=== PATIENT | female | born 1935 | race Caucasian/White ===

== ENCOUNTER 2021-05-21 03:07 | Observation (INO) | payer MEDICARE ==
[2021-05-21] MEDS ORDERED: predniSONE 20 MG TAB ONE ×2 (03:57→12:26)
[2021-05-21] MEDS ORDERED: Ventolin HFA Inhaler 60 PUFF INHALER ONE (03:58)
[2021-05-21 04:11] LABS: #Eosinphils 0.1 10x3/uL (0.0-0.5); #Monocytes 0.7 10x3/uL (0.0-1.1); %Basophils 0.4 % (0.0-2.0); %Eosinophils 2.5 % (0.0-6.0); %Lymphocytes 21.3 % (18.0-47.0); %Monocytes 13.5 % (0.0-10.0); %Neutrophils 61.9 % (40.0-75.0); Hemoglobin 13.1 g/dL (12.0-15.5); Mean Corpuscular Volume 96.9 fl (81.6-98.3); Mean Platelet Volume 10.9 fl (7.4-10.4); Platelet Count 96 10x3/uL (150-450); RBC Distribution Width 13.7 % (11.5-14.5); Red Blood Cell (RBC) Count 4.23 10x6/uL (3.90-5.03); White Blood Cell (WBC) Count 4.9 10x3/uL (3.5-10.5)
[2021-05-21 04:17] LABS: ALT (SGPT) 23 U/L (8-55); AST (SGOT) 33 U/L (5-34); Albumin 4.2 g/dL (3.4-4.8); Alkaline Phosphatase 103 U/L (40-110); Anion Gap 16 mmol/L (10-20); BUN (Urea Nitrogen) 16 mg/dL (9.8-20.1); Bilirubin, Total 2.2 mg/dL (0.2-1.2); Calc. Creatinine Clearance 0 mL/min (70-130); Calcium 8.7 mg/dL (7.8-10.44); Carbon Dioxide 24 mmol/L (23-31); Chloride 106 mmol/L (98-107); Glucose 94 mg/dL (83-110); Potassium 3.7 mmol/L (3.5-5.1); Protein, Total 7.2 g/dL (5.8-8.1); Sodium 142 mmol/L (136-145)
[2021-05-21] MEDS ORDERED: Furosemide 40 MG/4 ML VIAL ONE (05:31)
[2021-05-21] MEDS ORDERED: Azithromycin 500 MG in Sodium Chloride 0.9% 250 ML 250 ML IVPB SCH (06:30)
[2021-05-21 07:36] LABS: Magnesium 1.8 mg/dL (1.6-2.6)
[2021-05-21 07:40] LABS: Troponin I Less than 0.010 ng/mL (< 0.028)
[2021-05-21] MEDS ORDERED: Apixaban 5 MG TAB PO SCH (09:00)
[2021-05-21] MEDS ORDERED: Apixaban 5 MG TAB ONE (12:26)
[2021-05-21] MEDS ORDERED: Potassium Chloride 20 MEQ TAB ONE (12:27)
[2021-05-21] MEDS ORDERED: Metoprolol Tartrate 50 MG TAB ONE (12:27)
[2021-05-21] MEDS ORDERED: Diltiazem 125 MG/25 ML ONE (12:28)
[2021-05-21] MEDS ORDERED: Budesonide 0.5 MG/2 ML NEB ONE (12:32)
[2021-05-21] MEDS: Budesonide 0.5 MG/2 ML NEB NEB SCH ×2 (12:36→20:00)
[2021-05-21] MEDS: Arformoterol 15 MCG/2 ML NEB NEB SCH ×2 (12:39→20:00)
[2021-05-21] MEDS: predniSONE 20 MG TAB PO SCH (12:39)
[2021-05-21] MEDS ORDERED: Losartan 25 MG TAB ONE (12:47)
[2021-05-21] MEDS: guaiFENesin ER 600 MG TAB PO SCH ×2 (12:58→21:42)
[2021-05-21] MEDS: Losartan 25 MG TAB PO SCH (12:58)
[2021-05-21] MEDS ORDERED: Furosemide 40 MG/4 ML VIAL SLOW IVP SCH (14:00)
[2021-05-21] MEDS ORDERED: Digoxin 0.5 MG/2 ML AMP SLOW IVP SCH (15:00)
[2021-05-21 16:39] VITALS: BMI 35.7
[2021-05-21] MEDS ORDERED: cefTRIAXone\\ROCEPHIN 1 GM in Sodium Chloride 0.9% 100 ML IVPB SCH ×2 (18:00→21:00)
[2021-05-21 19:08] LABS: Bilirubin Neg (Negative); Blood, Urine Negative (Negative); Clarity Clear (Clear); Glucose, Urine (Dipstick) 50 mg/dL (Negative); Ketone, Urine Negative (Negative); Leukocyte 25 (Negative); Nitrite Negative (Negative); Protein, Urine (Dipstick) Negative (Neg-Trace); Urobilinogen Normal mg/dL (Less than 2)
[2021-05-21 19:17] LABS: Urine Culture Reflex No No
[2021-05-21 19:28] LABS: Bacteria/HPF Rare-Few HPF (None Seen); RBC/HPF 0-3 HPF (0-3); Squamous Epithelial None Seen HPF (0-3); WBC/HPF 0-3 HPF (0-3)
[2021-05-21] MEDS: diphenhydrAMINE 50 MG/ML VIAL IVP SCH (20:44)
[2021-05-21] MEDS ORDERED: Aztreonam 1 GM in Sodium Chloride 0.9% 100 ML IVPB SCH (21:00)
[2021-05-21] MEDS ORDERED: Dextrose 50% Abboject 50 ML SYRINGE SLOW IVP PRN (21:10)
[2021-05-21] MEDS ORDERED: Dextrose 5% in Water 1,000 ML IV PRN (21:10)
[2021-05-21] MEDS ORDERED: HumaLOG 300 UNITS/3 ML VIAL SC PRN (21:10)
[2021-05-21] MEDS: Benzonatate 100 MG CAP PO SCH (21:42)
[2021-05-21] MEDS: Apixaban 5 MG TAB PO SCH (21:42)
[2021-05-21 21:44] LABS: Legionella Urinary Ag Negative (Negative); Strep pneumo Urine Ag NEGATIVE (NEGATIVE)
[2021-05-21] MEDS ORDERED: GUAIFENESIN SF SOLN 200 MG/10 ML UDCUP PO PRN (22:51)
[2021-05-22 05:46] LABS: Anion Gap 13 mmol/L (10-20); BUN (Urea Nitrogen) 20 mg/dL (9.8-20.1); Calc. Creatinine Clearance 71 mL/min (70-130); Calcium 8.3 mg/dL (7.8-10.44); Carbon Dioxide 26 mmol/L (23-31); Chloride 106 mmol/L (98-107); Glucose 176 mg/dL (83-110); Potassium 3.7 mmol/L (3.5-5.1); Sodium 141 mmol/L (136-145)
[2021-05-22] MEDS ORDERED: Levothyroxine Sodium 100 MCG TAB PO SCH (06:00)
[2021-05-22] MEDS ORDERED: Levothyroxine Sodium 75 MCG TAB PO SCH (06:00)
[2021-05-22] MEDS ORDERED: Furosemide 40 MG/4 ML VIAL SLOW IVP SCH (06:00)
[2021-05-22 06:02] LABS: #Monocytes 0.5 10x3/uL (0.0-1.1); #Neutrophils 5.4 10x3/uL (1.5-8.4); %Lymphocytes 10.7 % (18.0-47.0); %Monocytes 7.8 % (0.0-10.0); %Neutrophils 81.2 % (40.0-75.0); Mean Corpuscular HGB CONC 33.4 g/dL (32.0-36.0); Mean Corpuscular Hemoglobin 31.7 pg (27.0-33.0); Mean Corpuscular Volume 94.7 fl (81.6-98.3); Mean Platelet Volume 11.8 fl (7.4-10.4); Platelet Count 99 10x3/uL (150-450); RBC Distribution Width 13.6 % (11.5-14.5); Red Blood Cell (RBC) Count 3.79 10x6/uL (3.90-5.03); White Blood Cell (WBC) Count 6.7 10x3/uL (3.5-10.5)
[2021-05-22] MEDS: Levothyroxine Sodium 75 MCG TAB PO SCH (06:06)
[2021-05-22] MEDS: Levothyroxine Sodium 100 MCG TAB PO SCH (06:06)
[2021-05-22] MEDS: Arformoterol 15 MCG/2 ML NEB NEB SCH ×2 (06:55→20:05)
[2021-05-22] MEDS: Budesonide 0.5 MG/2 ML NEB NEB SCH ×2 (06:57→20:15)
[2021-05-22] MEDS ORDERED: Digoxin 0.5 MG/2 ML AMP SLOW IVP SCH ×2 (08:30→10:30)
[2021-05-22] MEDS ORDERED: Guaifenesin DM 100-10/5 ML UDCUP PO PRN (08:33)
[2021-05-22] MEDS ORDERED: Digoxin 0.5 MG/2 ML AMP ONE (08:51)
[2021-05-22] MEDS: guaiFENesin ER 600 MG TAB PO SCH ×2 (08:54→21:10)
[2021-05-22] MEDS: Losartan 25 MG TAB PO SCH (08:54)
[2021-05-22] MEDS: predniSONE 20 MG TAB PO SCH (08:54)
[2021-05-22] MEDS: Apixaban 5 MG TAB PO SCH ×2 (08:55→21:10)
[2021-05-22] MEDS: Benzonatate 100 MG CAP PO SCH ×3 (08:56→21:09)
[2021-05-22] MEDS ORDERED: Potassium Bicarbonate/Cit Ac 20 MEQ TAB PO SCH (09:15)
[2021-05-22 15:07] LABS: SARS-CoV-2 PCR by NAA Not Detected (NotDetected)
[2021-05-22] MEDS ORDERED: diphenhydrAMINE 50 MG/ML VIAL IVP SCH (17:30)
[2021-05-22] MEDS: diphenhydrAMINE 50 MG/ML VIAL IVP SCH (20:00)
[2021-05-22] MEDS: cefTRIAXone\\ROCEPHIN 1 GM in Sodium Chloride 0.9% 100 ML IVPB SCH (21:09)
[2021-05-23 04:11] LABS: #Monocytes 0.5 10x3/uL (0.0-1.1); #Neutrophils 8.3 10x3/uL (1.5-8.4); %Basophils 0.1 % (0.0-2.0); %Lymphocytes 8.7 % (18.0-47.0); %Monocytes 5.3 % (0.0-10.0); %Neutrophils 85.5 % (40.0-75.0); Hemoglobin 12.5 g/dL (12.0-15.5); Mean Corpuscular HGB CONC 32.6 g/dL (32.0-36.0); Mean Corpuscular Hemoglobin 31.5 pg (27.0-33.0); Mean Corpuscular Volume 96.7 fl (81.6-98.3); Mean Platelet Volume 11.6 fl (7.4-10.4); Platelet Count 111 10x3/uL (150-450); RBC Distribution Width 13.7 % (11.5-14.5); Red Blood Cell (RBC) Count 3.97 10x6/uL (3.90-5.03); White Blood Cell (WBC) Count 9.7 10x3/uL (3.5-10.5)
[2021-05-23 04:13] LABS: Anion Gap 12 mmol/L (10-20); BUN (Urea Nitrogen) 25 mg/dL (9.8-20.1); Calc. Creatinine Clearance 69 mL/min (70-130); Calcium 8.4 mg/dL (7.8-10.44); Carbon Dioxide 29 mmol/L (23-31); Chloride 106 mmol/L (98-107); Glucose 120 mg/dL (83-110); Potassium 3.8 mmol/L (3.5-5.1); Sodium 143 mmol/L (136-145)
[2021-05-23] MEDS: Levothyroxine Sodium 100 MCG TAB PO SCH (06:21)
[2021-05-23] MEDS: Levothyroxine Sodium 75 MCG TAB PO SCH (06:21)
[2021-05-23] MEDS ORDERED: Potassium Bicarbonate/Cit Ac 20 MEQ TAB PO SCH (08:00)
[2021-05-23] MEDS: Arformoterol 15 MCG/2 ML NEB NEB SCH ×2 (08:28→19:55)
[2021-05-23] MEDS: Budesonide 0.5 MG/2 ML NEB NEB SCH ×2 (08:30→20:05)
[2021-05-23] MEDS: Benzonatate 100 MG CAP PO SCH ×3 (09:52→20:14)
[2021-05-23] MEDS: predniSONE 20 MG TAB PO SCH (09:52)
[2021-05-23] MEDS: guaiFENesin ER 600 MG TAB PO SCH ×2 (09:52→20:15)
[2021-05-23] MEDS: Losartan 25 MG TAB PO SCH (09:53)
[2021-05-23] MEDS: Apixaban 5 MG TAB PO SCH ×2 (09:53→20:14)
[2021-05-23] MEDS ORDERED: FLU VACC QS2021-22(65YR UP)/PF 240 MCG/0.7 ML SYRINGE IM ONE (17:15)
[2021-05-23] MEDS: diphenhydrAMINE 50 MG/ML VIAL IVP SCH (20:13)
[2021-05-23] MEDS: cefTRIAXone\\ROCEPHIN 1 GM in Sodium Chloride 0.9% 100 ML IVPB SCH (21:22)
[2021-05-24 04:38] LABS: Anion Gap 14 mmol/L (10-20); BUN (Urea Nitrogen) 23 mg/dL (9.8-20.1); Calc. Creatinine Clearance 79 mL/min (70-130); Calcium 8.2 mg/dL (7.8-10.44); Carbon Dioxide 23 mmol/L (23-31); Chloride 107 mmol/L (98-107); Glucose 134 mg/dL (83-110); Sodium 140 mmol/L (136-145)
[2021-05-24] MEDS: Levothyroxine Sodium 75 MCG TAB PO SCH (06:15)
[2021-05-24] MEDS: Levothyroxine Sodium 100 MCG TAB PO SCH (06:15)
[2021-05-24] MEDS: Arformoterol 15 MCG/2 ML NEB NEB SCH (07:20)
[2021-05-24] MEDS: Budesonide 0.5 MG/2 ML NEB NEB SCH (07:25)
[2021-05-24 07:54] VITALS: BP 124/56; TEMP 97.8
[2021-05-26 14:51] LABS: Ref Lab Test Ordered RESP PROFILE; Reference Lab Name LABCORP
== END 2021-05-24 07:25 | disposition home or self-care (01) ==
LOC: SUATTDRO 03:07 → CSHERS 03:07 → CSHERHOLD 05:57 → OBSVTOIN 12:26 → INTOOBSV 12:26 → CSHERHOLD 12:26 → UNDOADMOB 12:26 → CSHTELE 14:39 → CSHERHOLD 14:39 → UNDODISIN 05-24 07:25
PROVIDERS: ADMIT Family Medicine; ATTEND Hospitalist
DX: J18.9 Pneumonia, unspecified organism (principal); J96.01 Acute respiratory failure with hypoxia; I11.0 Hypertensive heart disease with heart failure; I50.33 Acute on chronic diastolic (congestive) heart failure; I48.92 Unspecified atrial flutter; I48.11 Longstanding persistent atrial fibrillation; Z20.822 Contact with and (suspected) exposure to COVID-19; M16.12 Unilateral primary osteoarthritis, left hip; E05.90 Thyrotoxicosis, unspecified without thyrotoxic crisis or storm; I34.0 Nonrheumatic mitral (valve) insufficiency; I27.20 Pulmonary hypertension, unspecified; E89.0 Postprocedural hypothyroidism; Z79.890 Hormone replacement therapy; Z79.899 Other long term (current) drug therapy; Z88.0 Allergy status to penicillin; Z88.6 Allergy status to analgesic agent; Z96.642 Presence of left artificial hip joint; Z96.653 Presence of artificial knee joint, bilateral; Z96.612 Presence of left artificial shoulder joint; Z85.850 Personal history of malignant neoplasm of thyroid; Z85.3 Personal history of malignant neoplasm of breast; Z85.72 Personal history of non-Hodgkin lymphomas; Z82.49 Family history of ischemic heart disease and other diseases of the circulatory system; Z80.0 Family history of malignant neoplasm of digestive organs; Z80.8 Family history of malignant neoplasm of other organs or systems
CPT/HCPCS: 71045; 80048 ×3; 81001; 82962 ×4; 83735 ×2; 83880 ×2; 84145; 84484 ×2; 85025 ×2; 86140; 87070; 87205; 87449; 87899; 90662; 93005 ×2; 93306; 94640 ×5; 94760 ×4; 96365; 96374; 96375; 96376; 97116; 97139 ×2; 99285; G0008; G0378 ×2; U0003; U0005; 36415; 36416; 80053; 84443; 87633; 90471; 93010; J0696; J1160; J1200; J1815; J1940; J1956; J3490; J7512; J7620; J7626

== ENCOUNTER 2021-11-13 00:45 | Emergency (ER) | payer MEDICARE ==
[2021-11-13 02:45] LABS: ALT (SGPT) 21 U/L (8-55); AST (SGOT) 26 U/L (5-34); Alkaline Phosphatase 120 U/L (40-110); Anion Gap 15 mmol/L (10-20); BUN (Urea Nitrogen) 20 mg/dL (9.8-20.1); Bilirubin, Total 2.1 mg/dL (0.2-1.2); Calc. Creatinine Clearance 0 mL/min (70-130); Calcium 9.1 mg/dL (7.8-10.44); Carbon Dioxide 24 mmol/L (23-31); Chloride 104 mmol/L (98-107); Globulin 3.2 g/dL (2.4-3.5); Glucose 115 mg/dL (83-110); Potassium 4.2 mmol/L (3.5-5.1); Protein, Total 7.2 g/dL (5.8-8.1); Sodium 139 mmol/L (136-145)
[2021-11-13 02:48] LABS: #Eosinphils 0.1 10x3/uL (0.0-0.5); #Monocytes 0.7 10x3/uL (0.0-1.1); #Neutrophils 3.9 10x3/uL (1.5-8.4); %Basophils 0.5 % (0.0-2.0); %Eosinophils 1.3 % (0.0-6.0); %Monocytes 12.2 % (0.0-10.0); %Neutrophils 64.7 % (40.0-75.0); Hemoglobin 13.3 g/dL (12.0-15.5); Mean Corpuscular HGB CONC 33.8 g/dL (32.0-36.0); Mean Corpuscular Hemoglobin 30.9 pg (27.0-33.0); Mean Corpuscular Volume 91.6 fl (81.6-98.3); Mean Platelet Volume 11.2 fl (7.4-10.4); RBC Distribution Width 14.3 % (11.5-14.5)
[2021-11-13 02:49] LABS: Platelet Count 141 10x3/uL (150-450)
[2021-11-13 03:01] LABS: INR-International Normal Ratio 1.2; PTT 32.5 sec (22.0-33.0); Prothrombin Time 12.4 sec (9.5-12.1)
[2021-11-13 03:06] LABS: SARS-CoV-2 NAA Rapid Test Not Detected (NotDetected)
== END 2021-11-13 03:57 | disposition home or self-care (01) ==
LOC: CSHERS 00:45
DX: D69.2 Other nonthrombocytopenic purpura (principal); D69.6 Thrombocytopenia, unspecified; Z20.822 Contact with and (suspected) exposure to COVID-19; I10 Essential (primary) hypertension; K21.9 Gastro-esophageal reflux disease without esophagitis; Z79.899 Other long term (current) drug therapy
CPT/HCPCS: 0240U; 80053; 83605; 84484; 85025; 85610; 85730; 86140; 93005; 36415

== ENCOUNTER 2022-08-20 14:03 | Outpatient (CLI) | payer MEDICARE | END 2022-08-20 14:04 | disposition home or self-care (01) | LOC: CSHMAMMO 14:03 | PROVIDERS: ATTEND Internal Medicine Hematology & Oncology | DX: Z12.31 Encounter for screening mammogram for malignant neoplasm of breast (principal); Z85.72 Personal history of non-Hodgkin lymphomas; Z98.890 Other specified postprocedural states | CPT/HCPCS: 77063; 77067 ==

== ENCOUNTER 2022-10-03 05:43 | Inpatient (IN) | payer MEDICARE ==
[2022-10-03 06:59] LABS: #Monocytes 0.9 10x3/uL (0.0-1.1); #Neutrophils 5.6 10x3/uL (1.5-8.4); %Basophils 0.3 % (0.0-2.0); %Eosinophils 0.1 % (0.0-6.0); %Lymphocytes 12.6 % (18.0-47.0); %Monocytes 11.9 % (0.0-10.0); Hemoglobin 11.4 g/dL (12.0-15.5); Mean Corpuscular HGB CONC 32.8 g/dL (32.0-36.0); Mean Corpuscular Hemoglobin 30.5 pg (27.0-33.0); Mean Platelet Volume 10.3 fl (7.4-10.4); Platelet Count 144 10x3/uL (150-450); RBC Distribution Width 14.3 % (11.5-14.5); Red Blood Cell (RBC) Count 3.74 10x6/uL (3.90-5.03); White Blood Cell (WBC) Count 7.5 10x3/uL (3.5-10.5)
[2022-10-03 07:01] LABS: Clarity Cloudy (Clear); Leukocyte 25 (Negative); Nitrite Negative (Negative); Protein, Urine (Dipstick) 100 mg/dl (Neg-Trace)
[2022-10-03 07:02] LABS: Bilirubin Neg (Negative); Blood, Urine 250 (Negative); Glucose, Urine (Dipstick) Normal (Negative); Ketone, Urine Negative (Negative); Urobilinogen Normal mg/dL (Less than 2)
[2022-10-03 07:05] LABS: INR-International Normal Ratio 1.3; Prothrombin Time 13.5 sec (9.5-12.1)
[2022-10-03 07:12] LABS: RBC/HPF Greater than 50 HPF (0-3); Squamous Epithelial 0-3 HPF (0-3); WBC/HPF 0-3 HPF (0-3)
[2022-10-03 07:13] LABS: Bacteria/HPF Rare-Few HPF (None Seen)
[2022-10-03] MEDS ORDERED: Ondansetron PF 4 MG/2 ML Vial ONE (07:13)
[2022-10-03] MEDS ORDERED: Vancomycin 1 GM VIAL ONE (07:13)
[2022-10-03] MEDS ORDERED: Cefepime 2 GM VIAL ONE (07:14)
[2022-10-03 07:19] LABS: ALT (SGPT) 21 U/L (8-55); AST (SGOT) 30 U/L (5-34); Albumin 4.1 g/dL (3.4-4.8); Alkaline Phosphatase 85 U/L (40-110); Anion Gap 19 mmol/L (10-20); BUN (Urea Nitrogen) 19 mg/dL (9.8-20.1); Bilirubin, Total 1.6 mg/dL (0.2-1.2); Calc. Creatinine Clearance 0 mL/min (70-130); Calcium 8.8 mg/dL (7.8-10.44); Carbon Dioxide 20 mmol/L (23-31); Chloride 106 mmol/L (98-107); Estimated GFR 39; Globulin 2.9 g/dL (2.4-3.5); Glucose 110 mg/dL (83-110); Lipase 22 U/L (8-78); Potassium 3.8 mmol/L (3.5-5.1); Sodium 141 mmol/L (136-145)
[2022-10-03 07:35] LABS: CKMB 1.3 ng/mL (0-6.6)
[2022-10-03 07:44] LABS: SARS-CoV-2 NAA Rapid Test DETECTED (NotDetected)
[2022-10-03] MEDS ORDERED: Sodium Chloride 0.9% 1,000 ML IV SCH (09:30)
[2022-10-03 10:12] LABS: Troponin I 0.046 ng/mL (< 0.028)
[2022-10-03 13:15] LABS: Troponin I 0.047 ng/mL (< 0.028)
[2022-10-03] MEDS ORDERED: Warfarin Sodium 5 MG TAB PO SCH (17:00)
[2022-10-03] MEDS ORDERED: Potassium Chloride 20 MEQ TAB PO SCH (21:00)
[2022-10-03] MEDS ORDERED: Furosemide 40 MG/4 ML VIAL SLOW IVP SCH (21:00)
[2022-10-04 05:48] VITALS: BMI 31.6
[2022-10-04] MEDS: Levothyroxine Sodium 25 MCG TAB PO SCH (06:07)
[2022-10-04] MEDS: Levothyroxine 150 MCG TAB PO SCH (06:07)
[2022-10-04 06:51] LABS: Anion Gap 15 mmol/L (10-20); BUN (Urea Nitrogen) 19 mg/dL (9.8-20.1); Calc. Creatinine Clearance 45 mL/min (70-130); Calcium 8.7 mg/dL (7.8-10.44); Carbon Dioxide 24 mmol/L (23-31); Chloride 105 mmol/L (98-107); Estimated GFR 44; Glucose 91 mg/dL (83-110); Potassium 3.9 mmol/L (3.5-5.1); Sodium 140 mmol/L (136-145)
[2022-10-04 07:14] LABS: Legionella Urinary Ag Negative (Negative); Strep pneumo Urine Ag NEGATIVE (NEGATIVE)
[2022-10-04] MEDS ORDERED: Furosemide 40 MG/4 ML VIAL SLOW IVP SCH (10:00)
[2022-10-04] MEDS: Furosemide 40 MG/4 ML VIAL SLOW IVP SCH (13:57)
[2022-10-04] MEDS ORDERED: Dexamethasone 4 mg/ml Vial SLOW IVP SCH (15:15)
[2022-10-04] MEDS ORDERED: Pharmacy to Dose REMDESIVIR IVPB PRN (15:18)
[2022-10-04] MEDS ORDERED: REMDESIVIR 200 MG in Sodium Chloride 0.9% 250 ML 210 ML IV SCH (16:15)
[2022-10-04] MEDS ORDERED: Warfarin Sodium 5 MG TAB PO SCH (17:00)
[2022-10-05] MEDS: Furosemide 40 MG/4 ML VIAL SLOW IVP SCH (06:15)
[2022-10-05] MEDS: Levothyroxine 150 MCG TAB PO SCH (06:16)
[2022-10-05] MEDS: Levothyroxine Sodium 25 MCG TAB PO SCH (06:16)
[2022-10-05 06:23] LABS: INR-International Normal Ratio 1.4; Prothrombin Time 15.1 sec (9.5-12.1)
[2022-10-05 06:25] LABS: Hemoglobin 10.3 g/dL (12.0-15.5); Mean Corpuscular HGB CONC 32.7 g/dL (32.0-36.0); Mean Corpuscular Hemoglobin 30.4 pg (27.0-33.0); Mean Corpuscular Volume 92.9 fl (81.6-98.3); Mean Platelet Volume 10.8 fl (7.4-10.4); Platelet Count 116 10x3/uL (150-450); Red Blood Cell (RBC) Count 3.39 10x6/uL (3.90-5.03); White Blood Cell (WBC) Count 4.7 10x3/uL (3.5-10.5)
[2022-10-05 06:26] LABS: #Monocytes 0.3 10x3/uL (0.0-1.1); #Neutrophils 3.6 10x3/uL (1.5-8.4); %Lymphocytes 12.6 % (18.0-47.0); %Monocytes 6.4 % (0.0-10.0); %Neutrophils 80.3 % (40.0-75.0)
[2022-10-05 06:50] LABS: ALT (SGPT) 12 U/L (8-55); AST (SGOT) 22 U/L (5-34); Albumin 3.3 g/dL (3.4-4.8); Alkaline Phosphatase 61 U/L (40-110); Anion Gap 13 mmol/L (10-20); BUN (Urea Nitrogen) 25 mg/dL (9.8-20.1); Bilirubin, Total 0.7 mg/dL (0.2-1.2); CRP (Inflammatory) 7.88 mg/dL (= or < 0.5); Calc. Creatinine Clearance 48 mL/min (70-130); Calcium 8.1 mg/dL (7.8-10.44); Carbon Dioxide 29 mmol/L (23-31); Chloride 100 mmol/L (98-107); Estimated GFR 47; Globulin 2.9 g/dL (2.4-3.5); Glucose 122 mg/dL (83-110); Potassium 3.7 mmol/L (3.5-5.1); Protein, Total 6.2 g/dL (5.8-8.1); Sodium 138 mmol/L (136-145)
[2022-10-05] MEDS: Dexamethasone 4 mg/ml Vial SLOW IVP SCH (10:19)
[2022-10-05] MEDS: Potassium Chloride 20 MEQ TAB PO SCH (10:22)
[2022-10-05] MEDS: Famotidine 20 MG TAB PO SCH (10:24)
[2022-10-05] MEDS: Furosemide 40 MG TAB PO SCH ×2 (10:24→13:38)
[2022-10-05] MEDS: REMDESIVIR 100 MG in Sodium Chloride 0.9% 250 ML 230 ML IV SCH (15:21)
[2022-10-05] MEDS ORDERED: Warfarin Sodium 10 MG TAB PO SCH (17:00)
[2022-10-05] MEDS ORDERED: Warfarin Sodium 5 MG TAB PO SCH (17:00)
[2022-10-06] MEDS ORDERED: Acetaminophen 325 MG TAB PO PRN (04:02)
[2022-10-06] MEDS: Levothyroxine Sodium 25 MCG TAB PO SCH (06:28)
[2022-10-06] MEDS: Levothyroxine 150 MCG TAB PO SCH (06:28)
[2022-10-06 06:55] LABS: Hemoglobin 11.3 g/dL (12.0-15.5); Mean Corpuscular HGB CONC 33.5 g/dL (32.0-36.0); Mean Corpuscular Hemoglobin 30.1 pg (27.0-33.0); Mean Corpuscular Volume 89.9 fl (81.6-98.3); Mean Platelet Volume 11.1 fl (7.4-10.4); Platelet Count 144 10x3/uL (150-450); RBC Distribution Width 13.6 % (11.5-14.5); Red Blood Cell (RBC) Count 3.75 10x6/uL (3.90-5.03); White Blood Cell (WBC) Count 8.5 10x3/uL (3.5-10.5)
[2022-10-06 07:00] LABS: INR-International Normal Ratio 1.7; Prothrombin Time 17.7 sec (9.5-12.1)
[2022-10-06 07:09] LABS: ALT (SGPT) 16 U/L (8-55); AST (SGOT) 20 U/L (5-34); Albumin 3.4 g/dL (3.4-4.8); Alkaline Phosphatase 75 U/L (40-110); Anion Gap 15 mmol/L (10-20); BUN (Urea Nitrogen) 38 mg/dL (9.8-20.1); Bilirubin, Total 0.7 mg/dL (0.2-1.2); Calc. Creatinine Clearance 47 mL/min (70-130); Calcium 8.5 mg/dL (7.8-10.44); Carbon Dioxide 29 mmol/L (23-31); Chloride 99 mmol/L (98-107); Estimated GFR 46; Globulin 3.1 g/dL (2.4-3.5); Glucose 128 mg/dL (83-110); Potassium 3.8 mmol/L (3.5-5.1); Protein, Total 6.5 g/dL (5.8-8.1); Sodium 139 mmol/L (136-145)
[2022-10-06 07:47] LABS: Band 3 % (5-11); Monocytes 3 % (0-10); Reactive Lymphocytes 1 % (0-10)
[2022-10-06 07:49] LABS: Lymphocytes 7 % (21-51)
[2022-10-06 07:50] LABS: Large Platelets SLIGHT (None Seen); Neutrophil 86 % (42-75); Platelet Morphology Comment Appears Adequate
[2022-10-06 07:52] LABS: MDiff Complete? YES; RBC Morphology Within Normal Limits
[2022-10-06] MEDS: Dexamethasone 4 mg/ml Vial SLOW IVP SCH (08:48)
[2022-10-06] MEDS: Famotidine 20 MG TAB PO SCH (08:48)
[2022-10-06] MEDS: Furosemide 40 MG TAB PO SCH ×2 (08:48→14:08)
[2022-10-06] MEDS: Potassium Chloride 20 MEQ TAB PO SCH (08:48)
[2022-10-06] MEDS: REMDESIVIR 100 MG in Sodium Chloride 0.9% 250 ML 230 ML IV SCH (16:29)
[2022-10-06] MEDS ORDERED: Warfarin Sodium 5 MG TAB PO SCH (17:00)
[2022-10-07 04:38] LABS: #Monocytes 0.5 10x3/uL (0.0-1.1); #Neutrophils 8.2 10x3/uL (1.5-8.4); %Basophils 0.1 % (0.0-2.0); %Lymphocytes 10.1 % (18.0-47.0); %Monocytes 4.7 % (0.0-10.0); %Neutrophils 84.6 % (40.0-75.0); Hemoglobin 11.9 g/dL (12.0-15.5); Mean Corpuscular HGB CONC 33.9 g/dL (32.0-36.0); Mean Corpuscular Hemoglobin 30.5 pg (27.0-33.0); Mean Platelet Volume 10.7 fl (7.4-10.4); Platelet Count 172 10x3/uL (150-450); RBC Distribution Width 13.5 % (11.5-14.5); White Blood Cell (WBC) Count 9.7 10x3/uL (3.5-10.5)
[2022-10-07 04:40] LABS: ALT (SGPT) 15 U/L (8-55); AST (SGOT) 23 U/L (5-34); Albumin 3.3 g/dL (3.4-4.8); Alkaline Phosphatase 73 U/L (40-110); Anion Gap 15 mmol/L (10-20); BUN (Urea Nitrogen) 45 mg/dL (9.8-20.1); Bilirubin, Total 0.7 mg/dL (0.2-1.2); Calc. Creatinine Clearance 43 mL/min (70-130); Calcium 8.2 mg/dL (7.8-10.44); Carbon Dioxide 29 mmol/L (23-31); Chloride 97 mmol/L (98-107); Estimated GFR 42; Globulin 3.2 g/dL (2.4-3.5); Glucose 132 mg/dL (83-110); Potassium 3.7 mmol/L (3.5-5.1); Protein, Total 6.5 g/dL (5.8-8.1); Sodium 137 mmol/L (136-145)
[2022-10-07 04:59] LABS: INR-International Normal Ratio 2.4
[2022-10-07] MEDS: Levothyroxine Sodium 25 MCG TAB PO SCH (05:56)
[2022-10-07] MEDS: Levothyroxine 150 MCG TAB PO SCH (05:56)
[2022-10-07] MEDS: Potassium Chloride 20 MEQ TAB PO SCH (08:32)
[2022-10-07] MEDS: Famotidine 20 MG TAB PO SCH (08:33)
[2022-10-07] MEDS: Furosemide 40 MG TAB PO SCH ×2 (08:33→15:07)
[2022-10-07] MEDS: Dexamethasone 4 mg/ml Vial SLOW IVP SCH (08:33)
[2022-10-07] MEDS: REMDESIVIR 100 MG in Sodium Chloride 0.9% 250 ML 230 ML IV SCH (16:19)
[2022-10-07] MEDS ORDERED: Warfarin Sodium 2.5 MG TAB PO SCH (17:00)
[2022-10-08] MEDS: Levothyroxine 150 MCG TAB PO SCH (05:46)
[2022-10-08 05:47] LABS: #Monocytes 0.7 10x3/uL (0.0-1.1); #Neutrophils 7.6 10x3/uL (1.5-8.4); %Basophils 0.1 % (0.0-2.0); %Lymphocytes 10.1 % (18.0-47.0); %Neutrophils 82.2 % (40.0-75.0); Hemoglobin 12.8 g/dL (12.0-15.5); Mean Corpuscular HGB CONC 33.8 g/dL (32.0-36.0); Mean Corpuscular Hemoglobin 30.3 pg (27.0-33.0); Mean Corpuscular Volume 89.6 fl (81.6-98.3); Platelet Count 185 10x3/uL (150-450); RBC Distribution Width 13.6 % (11.5-14.5); Red Blood Cell (RBC) Count 4.23 10x6/uL (3.90-5.03); White Blood Cell (WBC) Count 9.3 10x3/uL (3.5-10.5)
[2022-10-08] MEDS: Levothyroxine Sodium 25 MCG TAB PO SCH (05:47)
[2022-10-08 06:05] LABS: ALT (SGPT) 20 U/L (8-55); AST (SGOT) 24 U/L (5-34); Albumin 3.4 g/dL (3.4-4.8); Alkaline Phosphatase 74 U/L (40-110); Anion Gap 14 mmol/L (10-20); BUN (Urea Nitrogen) 49 mg/dL (9.8-20.1); Bilirubin, Total 0.8 mg/dL (0.2-1.2); Calc. Creatinine Clearance 39 mL/min (70-130); Calcium 8.5 mg/dL (7.8-10.44); Carbon Dioxide 32 mmol/L (23-31); Chloride 98 mmol/L (98-107); Estimated GFR 37; Globulin 3.3 g/dL (2.4-3.5); Glucose 135 mg/dL (83-110); Potassium 3.5 mmol/L (3.5-5.1); Protein, Total 6.7 g/dL (5.8-8.1); Sodium 140 mmol/L (136-145)
[2022-10-08 06:08] LABS: INR-International Normal Ratio 3.1; Prothrombin Time 32.7 sec (9.5-12.1)
[2022-10-08] MEDS: Famotidine 20 MG TAB PO SCH (09:31)
[2022-10-08] MEDS: Furosemide 40 MG TAB PO SCH ×2 (09:31→15:23)
[2022-10-08] MEDS: Dexamethasone 4 mg/ml Vial SLOW IVP SCH (09:31)
[2022-10-08] MEDS: Potassium Chloride 20 MEQ TAB PO SCH (09:31)
[2022-10-08] MEDS ORDERED: REMDESIVIR 100 MG in Sodium Chloride 0.9% 250 ML 230 ML IV SCH (12:00)
[2022-10-08 13:48] VITALS: BP 115/64; TEMP 98
== END 2022-10-08 15:55 | disposition home or self-care (01) | DRG 177 ==
LOC: CSHERS 05:43 → CSHTELE 18:03
PROVIDERS: ADMIT Internal Medicine; ATTEND Family Medicine
PROC: 8E0ZXY6 Isolation (ICD-10-PCS; principal; 2022-10-03)
PROC: XW033E5 Introduction of Remdesivir Anti-infective into Peripheral Vein, Percutaneous Approach, New Technology Group 5 (ICD-10-PCS; 2022-10-04)
DX: U07.1 COVID-19 (principal); I50.33 Acute on chronic diastolic (congestive) heart failure; J96.01 Acute respiratory failure with hypoxia; N17.9 Acute kidney failure, unspecified; I48.11 Longstanding persistent atrial fibrillation; E86.0 Dehydration; E89.0 Postprocedural hypothyroidism; I11.0 Hypertensive heart disease with heart failure; Z96.642 Presence of left artificial hip joint; Z96.653 Presence of artificial knee joint, bilateral; Z96.612 Presence of left artificial shoulder joint; Z79.890 Hormone replacement therapy; Z79.899 Other long term (current) drug therapy; Z88.0 Allergy status to penicillin; Z79.01 Long term (current) use of anticoagulants; Z88.8 Allergy status to other drugs, medicaments and biological substances; Z86.16 Personal history of COVID-19; Z85.3 Personal history of malignant neoplasm of breast; Z85.850 Personal history of malignant neoplasm of thyroid; Z92.21 Personal history of antineoplastic chemotherapy; Z82.49 Family history of ischemic heart disease and other diseases of the circulatory system; Z80.0 Family history of malignant neoplasm of digestive organs; K21.9 Gastro-esophageal reflux disease without esophagitis
CPT/HCPCS: 36415; 71045; 80048; 80053; 81003; 81015; 82553; 83605; 83690; 83880; 84145; 84484; 85025; 85610; 85730; 86140; 87040; 87449; 87899; 93005; 93306; J0248; J0692; J1100; J1940; J2405; J3370; J7050

== ENCOUNTER 2024-04-17 18:16 | Observation (INO) | payer MEDICARE ==
[2024-04-17] MEDS ORDERED: Aspirin Chewable 81 MG TAB ONE (18:50)
[2024-04-17] MEDS ORDERED: dilTIAZem 25 MG/5 ML VIAL ONE (18:50)
[2024-04-17 19:15] LABS: #Basophils 0.03 10x3/uL (0.0-0.2); #Eosinophils 0.12 10x3/uL (0.0-0.5); #Monocytes 0.55 10x3/uL (0.0-1.1); #Neutrophils 4.24 10x3/uL (1.5-8.4); %Basophils 0.5 % (0.0-2.0); %Eosinophils 2.1 % (0.0-6.0); %Lymphocytes 14.6 % (18.0-47.0); %Monocytes 9.4 % (0.0-10.0); %Neutrophils 72.7 % (40.0-75.0); Hematocrit 40.1 % (34.9-44.5); Hemoglobin 13.6 g/dL (12.0-15.5); Mean Corpuscular HGB CONC 33.9 g/dL (32.0-36.0); Mean Corpuscular Hemoglobin 31.3 pg (27.0-33.0); Mean Corpuscular Volume 92.4 fL (81.6-98.3); Mean Platelet Volume 10.6 fL (7.4-10.4); Platelet Count 140 10x3/uL (150-450); RBC Distribution Width 13.4 % (11.5-14.5); Red Blood Cell (RBC) Count 4.34 10x6/uL (3.90-5.03); White Blood Cell (WBC) Count 5.8 10x3/uL (3.5-10.5)
[2024-04-17 19:23] LABS: INR-International Normal Ratio 1.1; PTT 28.8 sec (22.0-33.0); Prothrombin Time 11.5 sec (9.5-12.1)
[2024-04-17 19:32] LABS: Troponin I 0.017 ng/mL (< 0.028)
[2024-04-17 19:33] LABS: ALT (SGPT) 16 U/L (8-55); AST (SGOT) 28 U/L (5-34); Albumin 4.2 g/dL (3.4-4.8); Alkaline Phosphatase 73 U/L (40-110); Anion Gap 16 mmol/L (10-20); BUN (Urea Nitrogen) 21 mg/dL (9.8-20.1); Bilirubin, Total 1.4 mg/dL (0.2-1.2); Calc. Creatinine Clearance 0 mL/min (70-130); Calcium 9.4 mg/dL (7.8-10.44); Carbon Dioxide 25 mmol/L (23-31); Chloride 105 mmol/L (98-107); Estimated GFR 44; Globulin 3.4 g/dL (2.4-3.5); Glucose 96 mg/dL (83-110); Potassium 4.3 mmol/L (3.5-5.1); Protein, Total 7.6 g/dL (5.8-8.1); Sodium 142 mmol/L (136-145)
[2024-04-17 20:54] LABS: Bilirubin Neg (Negative); Blood, Urine 250 (Negative); Clarity Clear (Clear); Glucose, Urine (Dipstick) Normal (Negative); Ketone, Urine Negative (Negative); Leukocyte 500 (Negative); Nitrite Negative (Negative); Protein, Urine (Dipstick) Negative (Neg-Trace); Urobilinogen Normal mg/dL (Less than 2)
[2024-04-17] MEDS ORDERED: Acetaminophen 325 MG TAB PO PRN (21:03)
[2024-04-17] MEDS ORDERED: diphenhydrAMINE 25 MG CAP PO PRN (21:03)
[2024-04-17] MEDS ORDERED: Benzocaine/Menthol 1 LOZ LOZ PO PRN (21:03)
[2024-04-17] MEDS ORDERED: Artificial Tear Ophth Sol 15 ML BOT EA EYE PRN (21:03)
[2024-04-17] MEDS ORDERED: Loperamide HCl 2 MG CAP PO PRN ×2 (21:03)
[2024-04-17] MEDS ORDERED: Benzonatate 100 MG CAP PO PRN (21:03)
[2024-04-17] MEDS ORDERED: Ondansetron ODT 4 MG TAB PO PRN (21:03)
[2024-04-17] MEDS ORDERED: Moisturizing Cream (Eucerin) 113 GM JAR TOP PRN (21:03)
[2024-04-17] MEDS ORDERED: Sodium Chloride 0.65% Nasal 44 ML BOT EA NARE PRN (21:03)
[2024-04-17] MEDS ORDERED: Loratadine 10 MG TAB PO PRN (21:03)
[2024-04-17] MEDS ORDERED: Calcium Carbonate 500 MG ChewTAB PO PRN (21:03)
[2024-04-17] MEDS ORDERED: Guaifenesin DM 100-10/5 ML UDCUP PO PRN (21:03)
[2024-04-17] MEDS ORDERED: Nitroglycerin 0.4 MG TAB (25 Tab Bottle) SL PRN (21:03)
[2024-04-17] MEDS ORDERED: Doxepin HCl 10 MG CAP PO PRN (21:05)
[2024-04-17 21:45] LABS: Bacteria/HPF Rare-Few HPF (None Seen); CAUTI Indications for Culture Pelvic or flank pain; Mucous/LPF Rare LPF (<2+); RBC/HPF Greater than 50 HPF (0-3); Squamous Epithelial 0-3 HPF (0-3)
[2024-04-17 21:46] LABS: Urine Culture Reflex Yes Yes
[2024-04-17 22:43] VITALS: BMI 32.4
[2024-04-17] MEDS: Melatonin 3 MG TAB PO PRN (22:53)
[2024-04-18 08:08] VITALS: TEMP 98.2
[2024-04-18] MEDS: Furosemide 40 MG TAB PO SCH (08:09)
[2024-04-18] MEDS: Aspirin 81 mg Enteric Coated Tablet PO SCH (08:10)
[2024-04-18] MEDS ORDERED: Furosemide 40 MG TAB PO SCH (09:00)
[2024-04-18] MEDS: Potassium Chloride 10 MEQ TAB PO SCH (09:50)
[2024-04-18] MEDS: Levothyroxine Sodium 125 MCG TAB PO SCH (09:50)
[2024-04-18 11:51] VITALS: BP 110/56
[2024-04-19] MEDS ORDERED: Levothyroxine Sodium 125 MCG TAB PO SCH (06:00)
[2024-04-19] MEDS ORDERED: Furosemide 40 MG TAB PO SCH (09:00)
[2024-04-19] MEDS ORDERED: Aspirin 81 mg Enteric Coated Tablet PO SCH (09:00)
== END 2024-04-18 12:25 | disposition home or self-care (01) ==
LOC: CSHERS 18:16 → CSHTELE 20:37
PROVIDERS: ADMIT Family Medicine; ATTEND Internal Medicine
DX: R50.9 Fever, unspecified (principal); I10 Essential (primary) hypertension; I48.21 Permanent atrial fibrillation; C85.1A Unspecified B-cell lymphoma, in remission; K92.2 Gastrointestinal hemorrhage, unspecified; Z96.642 Presence of left artificial hip joint; Z96.653 Presence of artificial knee joint, bilateral; Z95.818 Presence of other cardiac implants and grafts; Z96.612 Presence of left artificial shoulder joint; Z85.850 Personal history of malignant neoplasm of thyroid; Z85.3 Personal history of malignant neoplasm of breast; Z90.89 Acquired absence of other organs; Z88.0 Allergy status to penicillin; Z88.6 Allergy status to analgesic agent; Z79.890 Hormone replacement therapy; Z79.82 Long term (current) use of aspirin; Z79.899 Other long term (current) drug therapy; R06.02 Shortness of breath
CPT/HCPCS: 71045; 71275; 81001; 83605; 83735; 83880; 84484; 85610; 85730; 87040; 87086; 87428; 93005; 94762; 96374; 97116; 97530; 99285; G0378 ×3; 36415; 80053; 84443; 85025

== ENCOUNTER 2024-10-13 10:29 | Emergency (ER) | payer MEDICARE ==
[2024-10-13] MEDS ORDERED: dilTIAZem 25 MG/5 ML VIAL ONE (11:06)
[2024-10-13 11:36] LABS: ALT (SGPT) 14 U/L (Less than 34); AST (SGOT) 26 U/L (11-34); Albumin 4.1 g/dL (3.1-4.5); Alkaline Phosphatase 81 U/L (40-110); Anion Gap 14 mmol/L (10-20); BUN (Urea Nitrogen) 22 mg/dL (9.8-20.1); Bilirubin, Total 1.3 mg/dL (0.3-1.2); Calc. Creatinine Clearance 0 mL/min (70-130); Calcium 9.3 mg/dL (7.8-10.44); Carbon Dioxide 26 mmol/L (23-31); Chloride 105 mmol/L (98-107); Estimated GFR 53; Globulin 3.7 g/dL (2.4-3.5); Glucose 88 mg/dL (83-110); Potassium 4.1 mmol/L (3.5-5.1); Protein, Total 7.8 g/dL (5.8-8.1); Sodium 141 mmol/L (136-145)
[2024-10-13] MEDS ORDERED: Piperacillin/Tazobactam 3.375 GM VIAL ONE (11:39)
[2024-10-13 11:43] LABS: Troponin I 0.012 ng/mL (< 0.028)
[2024-10-13 11:54] LABS: #Basophils 0.05 10x3/uL (0.0-0.2); #Eosinophils 0.51 10x3/uL (0.0-0.5); #Monocytes 0.74 10x3/uL (0.0-1.1); #Neutrophils 4.86 10x3/uL (1.5-8.4); %Basophils 0.7 % (0.0-2.0); %Eosinophils 6.9 % (0.0-6.0); %Lymphocytes 15.9 % (18.0-47.0); %Monocytes 10.1 % (0.0-10.0); %Neutrophils 66.1 % (40.0-75.0); Hematocrit 41.5 % (34.9-44.5); Hemoglobin 14.1 g/dL (12.0-15.5); Mean Corpuscular Hemoglobin 31.4 pg (27.0-33.0); Mean Corpuscular Volume 92.4 fL (81.6-98.3); Mean Platelet Volume 10.5 fL (7.4-10.4); Platelet Count 186 10x3/uL (150-450); RBC Distribution Width 14.5 % (11.5-14.5); Red Blood Cell (RBC) Count 4.49 10x6/uL (3.90-5.03); White Blood Cell (WBC) Count 7.35 10x3/uL (3.5-10.5)
[2024-10-13 11:56] LABS: INR-International Normal Ratio 1.1; PTT 29.2 sec (22.0-33.0); Prothrombin Time 11.5 sec (9.5-12.1)
[2024-10-13] MEDS ORDERED: dilTIAZem 125 MG/25 ML SDV ONE (14:26)
== END 2024-10-13 16:41 | disposition short-term general hospital (02) ==
LOC: CSHERS 10:29
DX: J90 Pleural effusion, not elsewhere classified (principal); I48.91 Unspecified atrial fibrillation; R06.00 Dyspnea, unspecified; I10 Essential (primary) hypertension; K21.9 Gastro-esophageal reflux disease without esophagitis
CPT/HCPCS: 71045; 71250; 80053; 83735; 83880; 84484; 85025; 85610; 85730; 93005; 94760; 96365; 96366; 96376; 99285; J2543